=== PATIENT | female | born 1990 | race Caucasian/White ===

== ENCOUNTER 2019-04-05 05:30 | Inpatient (IN) | payer OTHER ==
--- NOTE | 2019-04-04 21:58 | PDOC.LDHP ---
Labor and Delivery H&P Chief complaint: scheduled section HPI: term repeat cs x 3 Current gestational age (weeks): 39 Due date: 04/08/19 Dating criteria: last menstrual period, first trimester ultrasound Grav: 3 Para: 2 Current complications: none Abnormal US findings: No Current medications: pre- vitamins Previous surgical history: low tranverse CS Allergies/Adverse Reactions: Allergies Allergy/AdvReac Type Severity Reaction Status Date / Time Sulfa (Sulfonamide Allergy Verified 04/04/19 21:58 Antibiotics) Social history: none - Physical Exam Vital signs reviewed and normal: yes General: NAD, resting Heart: RRR Lungs: nonlabored breathing Abdomen: NTTP Extremeties: no edema FHT: category 1 - Vaginal Exam cm dilated: 0 Effacement: 0% Station: -3 - OB Labs Blood type: AB RH: positive Antibody Screen: negative HIV: negative RPR: negative HEPSAg: negative 1 hour GCT: negative GBS: negative Rubella: immune - Assessment L&D Assessment: scheduled repeat section - Plan Plan: to OR for section
[2019-04-05] MEDS ORDERED: Lactated Ringer's 1,000 ML IV SCH (05:43)
[2019-04-05] MEDS ORDERED: Promethazine HCl 25 MG/ML VIAL IM PRN ×3 (05:43→10:34)
[2019-04-05] MEDS ORDERED: Ondansetron PF 4 MG/2 ML Vial IVP PRN ×3 (05:43→10:34)
[2019-04-05] MEDS ORDERED: hydrALAZINE 20 MG/ML VIAL SLOW IVP PRN ×2 (05:43→10:34)
[2019-04-05] MEDS ORDERED: CEFAZOLIN 2 GM in Premix Bag 1 BAG IVPB SCH (06:00)
[2019-04-05] MEDS ORDERED: Bicitra 30 ML UDCUP PO SCH (06:00)
[2019-04-05] MEDS: Lactated Ringer's 1,000 ML IV SCH ×3 (06:07→16:12)
[2019-04-05 06:09] VITALS: BMI 32.1
[2019-04-05 06:17] LABS: Hemoglobin 11.3 g/dL (12.0-16.0); Mean Corpuscular Hemoglobin 30.4 pg (27.0-31.0); Mean Corpuscular Volume 86.9 fL (78.0-98.0); Mean Platelet Volume 10.1 fL (7.4-10.4); Platelet Count 170 thou/uL (130-400); RBC Distribution Width 11.3 % (11.5-14.5); Red Blood Cell (RBC) Count 3.71 mill/uL (4.20-5.40); White Blood Cell (WBC) Count 8.2 thou/uL (4.8-10.8)
[2019-04-05 06:56] LABS: HBSAg Index 0.19 S/CO (0-0.99); Hep B Surf Ag Non-Reactive S/CO (NonReactive); Syphilis Antibody Nonreactive (Nonreactive); Syphilis Antibody Index 0.13 S/CO (<1.00 Non-Reactive)
[2019-04-05] MEDS ORDERED: Oxytocin 10 UNITS/ML VIAL ONE (07:26)
[2019-04-05] MEDS ORDERED: MORPHINE 5 MG/10 ML PF VIAL ONE (07:26)
[2019-04-05] MEDS ORDERED: L&D-Morphine 4 MG/ML VIAL SLOW IVP PRN (08:16)
[2019-04-05] MEDS ORDERED: Ketorolac Tromethamine 30 MG/ML VIAL IVP PRN (08:16)
[2019-04-05] MEDS ORDERED: Promethazine HCl 25 MG SUPP PR PRN (08:16)
[2019-04-05] MEDS ORDERED: HYDROmorphone 2 MG/ML VIAL SLOW IVP PRN (08:16)
[2019-04-05] MEDS ORDERED: Naloxone HCl 0.4 mg/ml Vial IV PRN (08:16)
[2019-04-05] MEDS ORDERED: Meperidine HCl/PF 25 MG/ML VIAL SLOW IVP PRN (08:16)
[2019-04-05] MEDS ORDERED: Naloxone HCl 0.4 mg/ml Vial IVP PRN ×2 (08:16)
[2019-04-05] MEDS ORDERED: diphenhydrAMINE 50 MG/ML VIAL IVP PRN (08:16)
[2019-04-05] MEDS ORDERED: Ondansetron HCl/PF 4 MG/2 ML Vial IVP PRN (08:16)
--- NOTE | 2019-04-05 08:20 | PDOC.OPDEL ---
OB Operative/Delivery Note Delivery Dr/Surgeon: benji nath Assist: kellie walker Pre-Delivery Diagnosis: scheduled section Procedure/Post Delivery Dx: repeat low transverse CS Weeks gestation: 39 Anesthesia: spinal - Findings A Sex: female Weight: 0 oz (pend) - 1 min: 8 (pend) - 5 min: 9 (pend) - Additional Findings/Plan Placenta delivered: manual removal findings: low transverse hysterotomy without extension Estimated blood loss: 700 Compilations/Other Findings: routine repeat cs with clear fluid, cephalic presentation. skin closure w dermabond and subcuticular Post delivery plan: routine recovery
[2019-04-05] MEDS ORDERED: NS / Oxytocin 40 units/1000ml 1,000 ML ONE (08:29)
[2019-04-05] MEDS ORDERED: Ketorolac Tromethamine 30 MG/ML VIAL IVP SCH (08:30)
[2019-04-05] MEDS ORDERED: Communication Order-Pharmacy FS SCH (08:30)
[2019-04-05] MEDS ORDERED: Meperidine HCl/PF 25 MG/ML VIAL ONE (08:36)
[2019-04-05] MEDS ORDERED: Meperidine HCl/PF 25 MG/ML VIAL SLOW IVP SCH (08:45)
[2019-04-05] MEDS ORDERED: diphenhydrAMINE 50 MG/ML VIAL ONE (09:14)
[2019-04-05] MEDS ORDERED: Zolpidem Tartrate 5 MG TAB PO PRN (10:34)
[2019-04-05] MEDS ORDERED: NS / Oxytocin 40 units/1000ml 1,000 ML IV SCH (10:34)
[2019-04-05] MEDS ORDERED: Bisacodyl 10 MG SUPP PR PRN (10:34)
[2019-04-05] MEDS ORDERED: Lanolin Ointment 7 GM TUBE TOP PRN (10:34)
--- NOTE | 2019-04-05 11:35 | OP ---
DATE OF PROCEDURE: 04/05/2019 TIME OF SERVICE: 07:45. PREOPERATIVE DIAGNOSES: Prior section x2, 39 weeks gestation for repeat section. POSTOPERATIVE DIAGNOSES: Prior section x2, 39 weeks gestation for repeat section. PROCEDURE PERFORMED: Repeat low-transverse section without extension at term. ELECTRIC CRANE OPERATOR: Bella Ritter PA-C ANESTHESIA: Jin Dye MD, subarachnoid block. MEDICATIONS: 2 g Ancef preincision. DVT PROPHYLAXIS: SCDs. DRAINS: Braxton to gravity. ESTIMATED BLOOD LOSS: Approximately 750 mL. COMPLICATIONS: None. DISPOSITION: Recovery room in good condition. DESCRIPTION OF PROCEDURE: After obtaining appropriate informed consent, the patient was taken to the operating room, where subarachnoid block was achieved without difficulty. Prepped and draped in the usual manner. Previous Pfannenstiel incision was made, incised sharply, carried down the fascia in midline, incised sharply superiorly and laterally with curved Paz scissors. Rectus was dissected off sharply, superiorly, and inferiorly, divided in the midline. Peritoneum entered bluntly, taking care to avoid trauma to the underlying viscera. Kenneth O retractor was placed inside. Low-transverse hysterotomy made just above the level of the vesicouterine peritoneal fold and was noted to be cephalic, clear fluid encountered and extended superiorly and laterally with finger fractionization. Infant's head elevated to the hysterotomy. Rest of the delivered. Cord clamped and cut, handed off to the team in attendance. Usual cord blood sample obtained. Placenta removed manually. Uterus noted to be without extension and left intraabdominal. Hysterotomy was closed using running locking #1 Monocryl suture. Good hemostasis was noted. Gutters were irrigated bilaterally. Re-inspection of the hysterotomy revealed it to be dry. Kenneth O retractor removed after counts were correct. Rectus was inspected, noted to be dry. Fascia reapproximated using a running continuous 0 PDS suture. Subcutaneous tissue irrigated and rendered hemostatic with Bovie cautery. Skin reapproximated using 4-0 Monocryl and Dermabond. The patient was taken to recovery room in good condition. Job ID: [id number]
[2019-04-05] MEDS: Simethicone Chewable 80 MG TAB PO PRN (13:50)
[2019-04-05] MEDS: Ibuprofen 800 MG TAB PO SCH (13:50)
[2019-04-05] MEDS: diphenhydrAMINE 25 MG CAP PO PRN ×2 (13:50→20:31)
[2019-04-05] MEDS: HYDROcodone/Acetaminophen 5/325 mg Tablet PO PRN (17:21)
[2019-04-05] MEDS: Docusate Calcium (SURFAK) 240 MG CAP PO SCH (20:31)
[2019-04-06] MEDS: Lactated Ringer's 1,000 ML IV SCH ×3 (02:44→17:18)
[2019-04-06] MEDS: Ibuprofen 800 MG TAB PO SCH ×5 (02:44→21:20)
[2019-04-06] MEDS: HYDROcodone/Acetaminophen 5/325 mg Tablet PO PRN ×5 (04:53→21:56)
[2019-04-06 05:32] LABS: Mean Corpuscular HGB CONC 33.4 g/dL (32.0-36.0); Mean Corpuscular Hemoglobin 29.6 pg (27.0-31.0); Mean Corpuscular Volume 88.8 fL (78.0-98.0); Mean Platelet Volume 9.9 fL (7.4-10.4); Platelet Count 132 thou/uL (130-400); RBC Distribution Width 11.4 % (11.5-14.5); Red Blood Cell (RBC) Count 3.36 mill/uL (4.20-5.40); White Blood Cell (WBC) Count 7.8 thou/uL (4.8-10.8)
[2019-04-06] MEDS: Prenatal Vitamin 1 TAB PO SCH (09:23)
[2019-04-06] MEDS: diphenhydrAMINE 25 MG CAP PO PRN (09:23)
[2019-04-06] MEDS: Docusate Calcium (SURFAK) 240 MG CAP PO SCH ×2 (09:24→21:20)
[2019-04-06] MEDS ORDERED: Adacel (T-DAP) 0.5 ML SYRINGE IM ONE (10:34)
[2019-04-06] MEDS: Simethicone Chewable 80 MG TAB PO PRN (21:20)
[2019-04-07] MEDS: HYDROcodone/Acetaminophen 5/325 mg Tablet PO PRN ×3 (02:11→09:45)
[2019-04-07] MEDS: Lactated Ringer's 1,000 ML IV SCH ×2 (02:59→12:26)
[2019-04-07] MEDS: Simethicone Chewable 80 MG TAB PO PRN (06:07)
[2019-04-07] MEDS: Ibuprofen 800 MG TAB PO SCH (06:09)
[2019-04-07 08:36] VITALS: BP 142/88; TEMP 97.7
[2019-04-07] MEDS: Docusate Calcium (SURFAK) 240 MG CAP PO SCH (09:45)
[2019-04-07] MEDS: Prenatal Vitamin 1 TAB PO SCH (09:45)
== END 2019-04-07 13:30 | disposition home or self-care (01) | DRG 788 ==
LOC: L&D 05:30 → 3SW 11:08
PROVIDERS: ADMIT Obstetrics & Gynecology; ATTEND Obstetrics & Gynecology
PROC: 10D00Z1 Extraction of Products of Conception, Low, Open Approach (ICD-10-PCS; principal; 2019-04-05)
DX: O34.211 Maternal care for low transverse scar from previous cesarean delivery (principal); Z3A.39 39 weeks gestation of pregnancy; Z37.0 Single live birth
CPT/HCPCS: 36415; 51702; 85027; 86780; 86850; 86900; 86901; 87340; J0690; J1200; J1885; J2175; J2274; J2590; Q0163

== ENCOUNTER 2020-02-27 13:03 | Outpatient (CLI) | payer OTHER ==
--- NOTE | 2020-02-27 14:39 | MMO ---
Bilateral MAMMO Bilat Diag DDI+[facility]RAM. CLINICAL HISTORY: Patient is 29 years old and is seen for diagnostic exam and lump or thickening in the right breast at 3 o'clock. The patient has no family history of breast cancer. The patient has no personal history of cancer. VIEWS: The views performed were: bilateral craniocaudal with tomosynthesis; bilateral mediolateral oblique with tomosynthesis; bilateral mediolateral with tomosynthesis; and right craniocaudal spot compression with tomosynthesis. FILMS COMPARED: The present examination has been compared to a prior imaging study performed at [facility] on 02/27/2020. This study has been interpreted with the assistance of computer-aided detection. MAMMOGRAM FINDINGS: There are scattered fibroglandular densities. Palpable findings shows no abnormality on mammogram or US. There are no suspicious masses, suspicious calcifications, or new areas of architectural distortion. IMPRESSION: THERE IS NO MAMMOGRAPHIC EVIDENCE OF MALIGNANCY. A ROUTINE FOLLOW-UP MAMMOGRAM AT AGE 40 IS RECOMMENDED. THE RESULTS OF THIS EXAM WERE SENT TO THE PATIENT. ACR BI-RADS Category 2 - Benign finding MAMMOGRAPHY NOTE: 1. A negative mammogram report should not delay a biopsy if a dominant of clinically suspicious mass is present. 2. Approximately 10% to 15% of breast cancers are not detected by mammography. 3. Adenosis and dense breasts may obscure an underlying neoplasm. Reported by: MOY DE LUNA MD Electonically Signed: [id number]
--- NOTE | 2020-02-27 15:38 | ULT ---
RIGHT BREAST ULTRASOUND: Date: 02/27/2020 HISTORY: Palpable abnormality right breast approximately 3 o'clock position anterior breast. COMPARISON: Mammogram done today. FINDINGS: Real-time imaging of the area of concern shows no cystic or solid lesion. IMPRESSION: BI-RADS Category 2 - Benign findings. POS: OFF
== END 2020-02-27 13:04 | disposition home or self-care (01) ==
LOC: BICMAMMO 13:03
PROVIDERS: ATTEND Obstetrics & Gynecology
DX: N63.10 Unspecified lump in the right breast, unspecified quadrant (principal)
CPT/HCPCS: 77066; G0279

== ENCOUNTER 2021-11-01 14:36 | Outpatient (CLI) | payer OTHER | END 2021-11-01 14:37 | disposition home or self-care (01) | LOC: BICMAMMO 14:36 | PROVIDERS: ATTEND Obstetrics & Gynecology | DX: Z12.31 Encounter for screening mammogram for malignant neoplasm of breast (principal); N63.10 Unspecified lump in the right breast, unspecified quadrant | CPT/HCPCS: 77066; G0279 ==

== ENCOUNTER 2023-02-09 07:15 | Outpatient (CLI) | payer OTHER | END 2023-02-09 07:16 | disposition home or self-care (01) | LOC: BICULT 07:15 | PROVIDERS: ATTEND Obstetrics & Gynecology | DX: K76.0 Fatty (change of) liver, not elsewhere classified (principal); R16.0 Hepatomegaly, not elsewhere classified | CPT/HCPCS: 76705 ==

== ENCOUNTER 2025-02-22 09:11 | Outpatient (CLI) | payer BC | END 2025-02-22 09:12 | disposition home or self-care (01) | LOC: SCSMRI 09:11 | PROVIDERS: ATTEND Chiropractor | DX: M51.16 Intervertebral disc disorders with radiculopathy, lumbar region (principal); M48.061 Spinal stenosis, lumbar region without neurogenic claudication; M48.07 Spinal stenosis, lumbosacral region | CPT/HCPCS: 72148 ==